=== PATIENT | female | born 1975 | race Caucasian/White ===

== ENCOUNTER 2019-05-07 16:29 | Inpatient (IN) ==
[2019-05-07] MEDS ORDERED: Acetaminophen 325 MG TABLET PO ONE (16:53)
[2019-05-07] MEDS ORDERED: 0.9 % Sodium Chloride 1,000 ML IVC ONE (17:18)
[2019-05-07] MEDS ORDERED: Ondansetron 4 MG/2 ML VIAL IVP ONE (17:18)
[2019-05-07 17:24] LABS: Bilirubin,Urine Small (Negative); Blood,Urine Moderate (Negative); Clarity,Urine Cloudy (Clear); Color,Urine Dark Yellow (Yellow); Glucose,Urine (UA) 100 mg/dL (Normal); Ketones,Urine Negative (Negative); Leukocyte Esterase,Urine Negative (Negative); Nitrite,Urine Negative (Negative); Protein,Urine 100 mg/dL (Neg-Trace); Specific Gravity,Urine 1.024 (1.010-1.025); Urobilinogen,Urine Normal (Normal)
[2019-05-07 17:26] LABS: Bacteria,Urine Few per hpf (None-Few); Squamous Epithelial Cell,Urine Many per lpf (None-Few); WBC,Urine 15-30 per hpf (0-3)
[2019-05-07] MEDS ORDERED: Gadolinium Contrast Agent (WT Based) IV PRN ×3 (17:30→17:32)
[2019-05-07] MEDS ORDERED: Isovue-370 500 ML BOTTLE IVP ONE (18:08)
[2019-05-07 18:25] LABS: Basophils % 0.2 %; Eosinophils % 0.2 %; Hematocrit 37.5 % (35.3-44.9); Hemoglobin 12.4 g/dL (11.5-15.4); Immature Granulocytes % 0.5 % (0-4); Lymphocytes # 0.3 K/mcL (0.6-4.6); Lymphocytes % 5.5 %; Mean Corpuscular HGB Conc 33.1 g/dL (31.6-35.5); Mean Corpuscular Hemoglobin 28.9 pg (28.0-33.3); Mean Corpuscular Volume 87.4 fL (83.0-100.0); Mean Platelet Volume 10.1 fL (9.4-12.4); Monocytes # 0.4 K/mcL (0.0-1.3); Neutrophils # 5.1 K/mcL (1.6-8.9); Platelet Count 131 K/mcL (140-400); Red Blood Count 4.29 M/mcL (3.82-4.97); Red Cell Distribution Width 12.8 % (11.5-14.5); Segmented Neutrophils % 87.6 %; White Blood Count 5.8 K/mcL (4.3-11.1)
[2019-05-07 18:38] LABS: INR 1.1; Prothrombin Time 12.2 Seconds (9.4-12.1)
[2019-05-07 18:45] LABS: Alanine Aminotransferase 27 Units/L (7-52); Albumin 3.7 g/dL (3.5-5.7); Albumin/Globulin Ratio 1.4 (1.1-2.2); Alkaline Phosphatase 90 Units/L (34-104); Aspartate Amino Transferase 40 Units/L (13-39); BUN/Creatinine Ratio 24 (6-26); Bilirubin,Direct 0.1 mg/dL (0.0-0.2); Bilirubin,Indirect 0.4 mg/dL (0.0-1.2); Bilirubin,Total 0.5 mg/dL (0.3-1.0); Blood Urea Nitrogen 20 mg/dL (6-20); Calcium 8.3 mg/dL (8.6-10.3); Carbon Dioxide 25 mEq/L (23-29); Chloride 94 mEq/L (98-107); Globulin 2.7 g/dL (2.4-3.5); Glucose 123 mg/dL (70-105); Magnesium 1.8 mg/dL (1.6-2.6); Osmolality,Calculated 272 (280-300); Phosphorous 1.8 mg/dL (2.7-4.5); Potassium 2.7 mEq/L (3.5-5.1); Sodium 129 mEq/L (136-145); Total Protein 6.4 g/dL (6.4-8.9); Troponin I < 0.03 ng/mL (< 0.04); eGFR For African Americans > 60 (> 60); eGFR For Non-African Americans > 60 (> 60)
[2019-05-07 18:52] LABS: Activated Partial Thrombo Time 35.8 Seconds (26.0-36.0)
[2019-05-07 19:03] LABS: Platelet Estimate Slight Decrease (Normal)
[2019-05-07] MEDS ORDERED: Potassium Chloride 40 MEQ, Lidocaine 1% 2 ML in 0.9 % Sodium Chloride 500 ML IVPB ONE (19:07)
[2019-05-07] MEDS ORDERED: Piperacillin/Tazobactam 3.375 GM in Water for inj. (sterile) 20 ML IVP ONE (20:17)
[2019-05-07] MEDS ORDERED: Naloxone 0.4 MG/ML INJ IVP PRN (22:37)
[2019-05-07] MEDS ORDERED: Ondansetron 4 MG/2 ML VIAL IVP PRN (22:37)
[2019-05-07] MEDS ORDERED: 0.9 % Sodium Chloride 1,000 ML IVC SCH (22:45)
[2019-05-07] MEDS: *HR* OxyCODONE/APAP 5/325 TABLET PO PRN (23:23)
[2019-05-07] MEDS: Acetaminophen 325 MG TABLET PO SCH (23:23)
[2019-05-07] MEDS ORDERED: *HR* LORazepam 2 MG/ML VIAL IVP PRN (23:27)
[2019-05-08] MEDS ORDERED: Ampicillin 2 GM in 0.9 % Sodium Chloride Mini Bag 100 ML IVPB SCH
[2019-05-08] MEDS: Acyclovir 600 MG in D5% in Water 250 ML IVPB SCH ×2 (00:23→08:58)
[2019-05-08] MEDS: 0.9 % Sodium Chloride 1,000 ML IVC SCH ×2 (00:24→12:30)
[2019-05-08 00:31] LABS: VBG Ionized Calcium 1.09 mmol/L (1.15-1.35)
[2019-05-08 00:33] LABS: Basophils % 0.2 %; Eosinophils % 0.8 %; Hematocrit 33.1 % (35.3-44.9); Hemoglobin 11.1 g/dL (11.5-15.4); Immature Granulocytes % 0.8 % (0-4); Lymphocytes # 0.4 K/mcL (0.6-4.6); Lymphocytes % 8.2 %; Mean Corpuscular HGB Conc 33.5 g/dL (31.6-35.5); Mean Corpuscular Hemoglobin 28.8 pg (28.0-33.3); Mean Platelet Volume 9.9 fL (9.4-12.4); Monocytes # 0.4 K/mcL (0.0-1.3); Platelet Count 113 K/mcL (140-400); Red Blood Count 3.85 M/mcL (3.82-4.97); Red Cell Distribution Width 12.9 % (11.5-14.5); White Blood Count 5.3 K/mcL (4.3-11.1)
[2019-05-08 00:41] LABS: Chol/HDL Ratio 3.2 (0-4.9)
[2019-05-08 00:42] LABS: BUN/Creatinine Ratio 20 (6-26); Blood Urea Nitrogen 13 mg/dL (6-20); Calcium 7.7 mg/dL (8.6-10.3); Carbon Dioxide 23 mEq/L (23-29); Chloride 102 mEq/L (98-107); Glucose 121 mg/dL (70-105); Magnesium 1.6 mg/dL (1.6-2.6); Osmolality,Calculated 275 (280-300); Potassium 2.9 mEq/L (3.5-5.1); Sodium 132 mEq/L (136-145); eGFR For African Americans > 60 (> 60); eGFR For Non-African Americans > 60 (> 60)
[2019-05-08 00:43] LABS: Neutrophils # 4.4 K/mcL (1.6-8.9)
[2019-05-08] MEDS ORDERED: Gadolinium Contrast Agent (WT Based) IV PRN (01:34)
[2019-05-08] MEDS ORDERED: Potassium Phosphate 44 MEQ in 0.9 % Sodium Chloride 250 ML IVPB ONE (01:42)
[2019-05-08] MEDS ORDERED: cefTRIAXone 2,000 MG in Water for inj. (sterile) 20 ML IVP SCH (02:00)
[2019-05-08 02:23] LABS: Amphetamine Screen,Urine Positive ng/mL (Cutoff=1000); Barbiturate Screen,Urine Negative ng/mL (Cutoff=200); Benzodiazepines Screen,Urine Negative ng/mL (Cutoff=200); Cannabinoid Screen,Urine Positive ng/mL (Cutoff = 50); Cocaine Screen,Urine Negative ng/mL (Cutoff= 300); Opiate Screen,Urine Negative ng/mL (Cutoff=300); Phencyclidine Screen,Urine Negative ng/mL (Cutoff=25)
[2019-05-08] MEDS: Ipratropium/Albuterol Neb 3 ML IH SCH ×4 (03:51→22:18)
[2019-05-08] MEDS: Acetaminophen 325 MG TABLET PO SCH ×4 (05:14→23:04)
[2019-05-08] MEDS: *HR* OxyCODONE/APAP 5/325 TABLET PO PRN ×3 (05:15→23:04)
[2019-05-08] MEDS ORDERED: Piperacillin/Tazobactam 3.375 GM in 0.9 % Sodium Chloride Mini Bag 100 ML IVPB SCH (06:00)
[2019-05-08] MEDS ORDERED: *HR* Heparin 5,000 UNIT/ML VIAL SQ SCH (06:00)
[2019-05-08] MEDS: Nystatin SUSP 5 ML UD.LIQ PO SCH ×4 (06:23→20:00)
[2019-05-08 08:30] LABS: Phosphorous 3.5 mg/dL (2.7-4.5); Potassium 3.5 mEq/L (3.5-5.1)
[2019-05-08] MEDS ORDERED: Aminoglycoside Consult 1 EACH MC ONE (08:34)
[2019-05-08] MEDS: FLUoxetine 20 MG CAPSULE PO SCH (09:10)
[2019-05-08] MEDS: Topiramate 100 MG TABLET PO SCH ×2 (09:10→20:00)
[2019-05-08 12:58] LABS: Acinetobacter baumannii by PCR Not Detected (Not Detect); Candida albicans by PCR Not Detected (Not Detect); Candida glabrata by PCR Not Detected (Not Detect); Candida krusei by PCR Not Detected (Not Detect); Candida parapsilosis by PCR Not Detected (Not Detect); Candida tropicalis by PCR Not Detected (Not Detect); Enterobacter cloacae Cmplx PCR Not Detected (Not Detect); Enterobacteriaceae by PCR Not Detected (Not Detect); Enterococcus by PCR Not Detected (Not Detect); Escherichia coli by PCR Not Detected (Not Detect); Klebsiella oxytoca by PCR Not Detected (Not Detect); Klebsiella pneumoniae by PCR Not Detected (Not Detect); Proteus by PCR Not Detected (Not Detect); Pseudomonas aeruginosa by PCR Not Detected (Not Detect); Serratia marcescens by PCR Not Detected (Not Detect); Staphylococcus aureus by PCR DETECTED (Not Detect); Streptococcus agalactiae(B)PCR Not Detected (Not Detect); Streptococcus by PCR Not Detected (Not Detect); Streptococcus pneumoniae PCR Not Detected (Not Detect); Streptococcus pyogenes (A) PCR Not Detected (Not Detect); mecA Methicillin-Resist Gene Not Detected (Not Detect)
[2019-05-08] MEDS ORDERED: Haloperidol Lactate 5 MG/ML VIAL IVP ONE (14:00)
[2019-05-08] MEDS ORDERED: Nicotine 2 MG GUM BC PRN (17:58)
[2019-05-08 18:37] LABS: Hepatitis B Surface Antigen Nonreactive (Nonreactive)
[2019-05-08 19:06] LABS: Hepatitis B Core IgM Nonreactive (Nonreactive); Hepatitis C Virus Antibody Nonreactive (Nonreactive)
[2019-05-08 19:07] LABS: HIV-1&2 Antibody & p24 Ag Nonreactive (Nonreactive)
[2019-05-08] MEDS: Sennosides/Docusate Sodium TABLET PO SCH (23:04)
[2019-05-09] MEDS: Ipratropium/Albuterol Neb 3 ML IH SCH ×4 (04:11→22:45)
[2019-05-09] MEDS: *HR* OxyCODONE/APAP 5/325 TABLET PO PRN ×2 (05:11→20:06)
[2019-05-09] MEDS: Acetaminophen 325 MG TABLET PO SCH ×3 (05:11→17:05)
[2019-05-09 07:58] LABS: Basophils % 0.3 %; Eosinophils # 0.2 K/mcL (0.0-0.6); Eosinophils % 2.4 %; Hematocrit 30.7 % (35.3-44.9); Hemoglobin 10.1 g/dL (11.5-15.4); Immature Granulocytes % 0.8 % (0-4); Lymphocytes # 1.2 K/mcL (0.6-4.6); Lymphocytes % 17.1 %; Mean Corpuscular HGB Conc 32.9 g/dL (31.6-35.5); Mean Corpuscular Hemoglobin 28.9 pg (28.0-33.3); Mean Corpuscular Volume 87.7 fL (83.0-100.0); Mean Platelet Volume 10.3 fL (9.4-12.4); Monocytes # 0.7 K/mcL (0.0-1.3); Monocytes % 9.6 %; Platelet Count 138 K/mcL (140-400); Red Cell Distribution Width 13.6 % (11.5-14.5); Segmented Neutrophils % 69.8 %; White Blood Count 7.1 K/mcL (4.3-11.1)
[2019-05-09] MEDS: Nystatin SUSP 5 ML UD.LIQ PO SCH ×4 (08:15→19:54)
[2019-05-09 08:20] LABS: BUN/Creatinine Ratio 18 (6-26); Blood Urea Nitrogen 11 mg/dL (6-20); Calcium 8.3 mg/dL (8.6-10.3); Carbon Dioxide 22 mEq/L (23-29); Chloride 106 mEq/L (98-107); Glucose 103 mg/dL (70-105); Magnesium 1.9 mg/dL (1.6-2.6); Osmolality,Calculated 286 (280-300); Phosphorous 3.5 mg/dL (2.7-4.5); Potassium 3.5 mEq/L (3.5-5.1); Sodium 138 mEq/L (136-145); eGFR For African Americans > 60 (> 60); eGFR For Non-African Americans > 60 (> 60)
[2019-05-09] MEDS ORDERED: *HR* Midazolam HCl 2 MG/2 ML VIAL IVP PRN (08:49)
[2019-05-09] MEDS ORDERED: Lidocaine Viscous Oral Soln 15 ML SOLUTION MM PRN (08:49)
[2019-05-09] MEDS ORDERED: *HR* FentaNYL (PF) 100 MCG/2 ML VIAL IVP PRN (08:49)
[2019-05-09] MEDS ORDERED: 0.9 % Sodium Chloride 500 ML IVC ONE (08:49)
[2019-05-09] MEDS ORDERED: *HR* Midazolam HCl 5 MG/5 ML VIAL IVP ONE (09:09)
[2019-05-09] MEDS: *HR* Heparin 5,000 UNIT/ML VIAL SQ SCH ×2 (10:20→17:06)
[2019-05-09] MEDS: Topiramate 100 MG TABLET PO SCH ×2 (11:09→19:54)
[2019-05-09] MEDS: Sennosides/Docusate Sodium TABLET PO SCH ×2 (11:09→19:54)
[2019-05-09] MEDS: FLUoxetine 20 MG CAPSULE PO SCH (11:09)
[2019-05-09] MEDS ORDERED: Ringers Solution, Lactated 1,000 ML IVC SCH (12:00)
[2019-05-09] MEDS: Divalproex (24 HR) 500 MG TABLET PO SCH (19:54)
[2019-05-09] MEDS: QUEtiapine Fumarate 25 MG TABLET PO SCH (19:54)
[2019-05-09 21:07] LABS: mecA Methicillin-Resist Gene Not Detected (Not Detect)
[2019-05-09 21:08] LABS: Acinetobacter baumannii by PCR Not Detected (Not Detect); Candida albicans by PCR Not Detected (Not Detect); Candida glabrata by PCR Not Detected (Not Detect); Candida krusei by PCR Not Detected (Not Detect); Candida parapsilosis by PCR Not Detected (Not Detect); Candida tropicalis by PCR Not Detected (Not Detect); Enterobacter cloacae Cmplx PCR Not Detected (Not Detect); Enterobacteriaceae by PCR Not Detected (Not Detect); Enterococcus by PCR Not Detected (Not Detect); Escherichia coli by PCR Not Detected (Not Detect); Klebsiella oxytoca by PCR Not Detected (Not Detect); Klebsiella pneumoniae by PCR Not Detected (Not Detect); Proteus by PCR Not Detected (Not Detect); Pseudomonas aeruginosa by PCR Not Detected (Not Detect); Serratia marcescens by PCR Not Detected (Not Detect); Staphylococcus aureus by PCR DETECTED (Not Detect); Staphylococcus by PCR Not Detected (Not Detect); Streptococcus agalactiae(B)PCR Not Detected (Not Detect); Streptococcus by PCR Not Detected (Not Detect); Streptococcus pneumoniae PCR Not Detected (Not Detect); Streptococcus pyogenes (A) PCR Not Detected (Not Detect)
[2019-05-10] MEDS: Acetaminophen 325 MG TABLET PO SCH ×4 (01:41→11:42)
[2019-05-10 02:25] LABS: Basophils % 0.2 %; Eosinophils # 0.2 K/mcL (0.0-0.6); Eosinophils % 2.7 %; Hematocrit 32.2 % (35.3-44.9); Hemoglobin 10.4 g/dL (11.5-15.4); Immature Granulocytes % 0.6 % (0-4); Lymphocytes # 1.5 K/mcL (0.6-4.6); Lymphocytes % 18.6 %; Mean Corpuscular HGB Conc 32.3 g/dL (31.6-35.5); Mean Corpuscular Hemoglobin 29.2 pg (28.0-33.3); Mean Corpuscular Volume 90.4 fL (83.0-100.0); Monocytes # 0.7 K/mcL (0.0-1.3); Monocytes % 8.1 %; Neutrophils # 5.6 K/mcL (1.6-8.9); Platelet Count 168 K/mcL (140-400); Red Blood Count 3.56 M/mcL (3.82-4.97); Red Cell Distribution Width 13.7 % (11.5-14.5); Segmented Neutrophils % 69.8 %; White Blood Count 8.1 K/mcL (4.3-11.1)
[2019-05-10 02:46] LABS: BUN/Creatinine Ratio 20 (6-26); Blood Urea Nitrogen 11 mg/dL (6-20); Calcium 8.5 mg/dL (8.6-10.3); Carbon Dioxide 21 mEq/L (23-29); Chloride 108 mEq/L (98-107); Glucose 92 mg/dL (70-105); Magnesium 2.1 mg/dL (1.6-2.6); Osmolality,Calculated 283 (280-300); Phosphorous 3.9 mg/dL (2.7-4.5); Potassium 4.1 mEq/L (3.5-5.1); Sodium 137 mEq/L (136-145); eGFR For African Americans > 60 (> 60); eGFR For Non-African Americans > 60 (> 60)
[2019-05-10] MEDS: Ipratropium/Albuterol Neb 3 ML IH SCH ×4 (04:04→22:27)
[2019-05-10] MEDS: *HR* Heparin 5,000 UNIT/ML VIAL SQ SCH ×2 (06:40→17:12)
[2019-05-10] MEDS: *HR* OxyCODONE/APAP 5/325 TABLET PO PRN ×3 (06:47→20:24)
[2019-05-10] MEDS: Nystatin SUSP 5 ML UD.LIQ PO SCH ×4 (08:13→20:24)
[2019-05-10] MEDS: Sennosides/Docusate Sodium TABLET PO SCH ×2 (08:13→20:24)
[2019-05-10] MEDS: FLUoxetine 20 MG CAPSULE PO SCH (08:13)
[2019-05-10] MEDS: Topiramate 100 MG TABLET PO SCH ×2 (08:13→20:24)
[2019-05-10] MEDS ORDERED: Acetaminophen 325 MG TABLET PO PRN (17:21)
[2019-05-10] MEDS: Divalproex (24 HR) 500 MG TABLET PO SCH (20:24)
[2019-05-10] MEDS: QUEtiapine Fumarate 25 MG TABLET PO SCH (20:24)
[2019-05-11] MEDS: Ipratropium/Albuterol Neb 3 ML IH SCH (04:00)
[2019-05-11] MEDS ORDERED: Ipratropium/Albuterol Neb 3 ML IH PRN (05:14)
[2019-05-11] MEDS: *HR* Heparin 5,000 UNIT/ML VIAL SQ SCH ×2 (06:07→17:37)
[2019-05-11] MEDS: Nystatin SUSP 5 ML UD.LIQ PO SCH ×4 (08:09→20:26)
[2019-05-11] MEDS: FLUoxetine 20 MG CAPSULE PO SCH (08:10)
[2019-05-11] MEDS: Topiramate 100 MG TABLET PO SCH ×2 (08:10→20:28)
[2019-05-11] MEDS: Sennosides/Docusate Sodium TABLET PO SCH ×2 (08:10→20:28)
[2019-05-11] MEDS ORDERED: Nicotine 21 MG PATCH.TD24 TD STA (18:16)
[2019-05-11] MEDS: QUEtiapine Fumarate 25 MG TABLET PO SCH (20:28)
[2019-05-11] MEDS: *HR* OxyCODONE/APAP 5/325 TABLET PO PRN (20:28)
[2019-05-11] MEDS: Divalproex (24 HR) 500 MG TABLET PO SCH (20:28)
[2019-05-12 02:46] LABS: BUN/Creatinine Ratio 25 (6-26); Blood Urea Nitrogen 14 mg/dL (6-20); Carbon Dioxide 19 mEq/L (23-29); Chloride 106 mEq/L (98-107); Glucose 99 mg/dL (70-105); Magnesium 2.4 mg/dL (1.6-2.6); Osmolality,Calculated 281 (280-300); Phosphorous 4.1 mg/dL (2.7-4.5); Sodium 135 mEq/L (136-145); eGFR For African Americans > 60 (> 60); eGFR For Non-African Americans > 60 (> 60)
[2019-05-12 04:13] LABS: Basophils # 0.1 K/mcL (0.0-0.2); Basophils % 0.9 %; Eosinophils # 0.3 K/mcL (0.0-0.6); Eosinophils % 3.9 %; Hematocrit 36.4 % (35.3-44.9); Hemoglobin 11.7 g/dL (11.5-15.4); Immature Granulocytes % 4.5 % (0-4); Lymphocytes % 30.4 %; Mean Corpuscular HGB Conc 32.1 g/dL (31.6-35.5); Mean Corpuscular Hemoglobin 28.5 pg (28.0-33.3); Mean Corpuscular Volume 88.6 fL (83.0-100.0); Mean Platelet Volume 10.2 fL (9.4-12.4); Monocytes # 0.5 K/mcL (0.0-1.3); Monocytes % 8.2 %; Neutrophils # 3.4 K/mcL (1.6-8.9); Platelet Count 333 K/mcL (140-400); Red Blood Count 4.11 M/mcL (3.82-4.97); Red Cell Distribution Width 13.8 % (11.5-14.5); Segmented Neutrophils % 52.1 %; White Blood Count 6.6 K/mcL (4.3-11.1)
[2019-05-12] MEDS: *HR* Heparin 5,000 UNIT/ML VIAL SQ SCH ×2 (05:08→17:10)
[2019-05-12] MEDS: Sennosides/Docusate Sodium TABLET PO SCH ×2 (08:02→21:11)
[2019-05-12] MEDS: Topiramate 100 MG TABLET PO SCH ×2 (08:04→21:11)
[2019-05-12] MEDS: FLUoxetine 20 MG CAPSULE PO SCH (08:05)
[2019-05-12] MEDS: Nystatin SUSP 5 ML UD.LIQ PO SCH ×5 (08:05→21:16)
[2019-05-12] MEDS: *HR* OxyCODONE/APAP 5/325 TABLET PO PRN ×2 (10:48→19:32)
[2019-05-12] MEDS: Divalproex (24 HR) 500 MG TABLET PO SCH (21:11)
[2019-05-12] MEDS: QUEtiapine Fumarate 25 MG TABLET PO SCH (21:12)
[2019-05-13] MEDS: *HR* Heparin 5,000 UNIT/ML VIAL SQ SCH ×2 (04:58→18:43)
[2019-05-13] MEDS: *HR* OxyCODONE/APAP 5/325 TABLET PO PRN ×3 (05:04→19:35)
[2019-05-13] MEDS: FLUoxetine 20 MG CAPSULE PO SCH (08:32)
[2019-05-13] MEDS: Sennosides/Docusate Sodium TABLET PO SCH ×2 (08:32→19:33)
[2019-05-13] MEDS: Topiramate 100 MG TABLET PO SCH ×2 (08:32→19:36)
[2019-05-13] MEDS: Nystatin SUSP 5 ML UD.LIQ PO SCH ×4 (08:33→19:34)
[2019-05-13] MEDS: QUEtiapine Fumarate 25 MG TABLET PO SCH (19:36)
[2019-05-13] MEDS ORDERED: Divalproex (24 HR) 500 MG TABLET PO SCH (21:00)
[2019-05-14] MEDS: *HR* OxyCODONE/APAP 5/325 TABLET PO PRN ×2 (04:10→14:39)
[2019-05-14] MEDS: *HR* Heparin 5,000 UNIT/ML VIAL SQ SCH ×2 (04:11→18:26)
[2019-05-14] MEDS: Sennosides/Docusate Sodium TABLET PO SCH (08:46)
[2019-05-14] MEDS: Topiramate 100 MG TABLET PO SCH (08:46)
[2019-05-14] MEDS: Nystatin SUSP 5 ML UD.LIQ PO SCH ×4 (08:46→17:13)
[2019-05-14] MEDS: FLUoxetine 20 MG CAPSULE PO SCH (08:46)
[2019-05-14 14:55] VITALS: BP 94/63
== END 2019-05-14 19:51 | DRG 720 ==
LOC: EMEROOARM 16:29 → 2ANU 16:29 → 2NNU 21:11 → SUATTDRO 05-08 03:39 → 3ANU 05-12 18:06
PROVIDERS: ADMIT Pediatrics; ATTEND Pharmacist

== ENCOUNTER 2022-02-16 13:17 | Observation (INO) ==
[2022-02-16 14:06] LABS: Basophils % 0.5 %; Eosinophils # 0.1 K/mcL (0.0-0.6); Eosinophils % 1.6 %; Hematocrit 41.3 % (35.3-44.9); Hemoglobin 13.5 g/dL (11.5-15.4); Immature Granulocytes % 0.6 % (0-4); Lymphocytes # 2.7 K/mcL (0.6-4.6); Lymphocytes % 41.4 %; Mean Corpuscular HGB Conc 32.7 g/dL (31.6-35.5); Mean Corpuscular Hemoglobin 29.4 pg (28.0-33.3); Monocytes # 0.7 K/mcL (0.0-1.3); Monocytes % 10.9 %; Neutrophils # 2.9 K/mcL (1.6-8.9); Platelet Count 169 K/mcL (140-400); Red Blood Count 4.59 M/mcL (3.82-4.97); Red Cell Distribution Width 13.6 % (11.5-14.5); White Blood Count 6.4 K/mcL (4.3-11.1)
[2022-02-16 14:26] LABS: Alanine Aminotransferase 10 Units/L (7-52); Albumin 4.2 g/dL (3.5-5.7); Albumin/Globulin Ratio 1.9 (1.1-2.2); Alkaline Phosphatase 59 Units/L (34-104); Aspartate Amino Transferase 11 Units/L (13-39); BUN/Creatinine Ratio 26 (6-26); Bilirubin,Total 0.3 mg/dL (0.3-1.0); Blood Urea Nitrogen 26 mg/dL (6-20); Calcium 9.5 mg/dL (8.6-10.3); Carbon Dioxide 26 mEq/L (23-29); Chloride 109 mEq/L (98-107); Globulin 2.2 g/dL (2.4-3.5); Glucose 88 mg/dL (70-105); Osmolality,Calculated 296 (280-300); Potassium 4.3 mEq/L (3.5-5.1); Sodium 141 mEq/L (136-145); Total Protein 6.4 g/dL (6.4-8.9); Troponin I < 0.03 ng/mL (< 0.04); eGFR For African Americans > 60 (> 60); eGFR For Non-African Americans > 60 (> 60)
[2022-02-16 14:54] LABS: Influenza A PCR Negative (Negative); Influenza B PCR Negative (Negative); Resp. Syncytial Virus PCR Negative (Negative)
[2022-02-16 15:11] LABS: SARS-CoV-2 by PCR (In House) Negative (Negative)
[2022-02-16] MEDS ORDERED: Aspirin 325 MG TABLET PO ONE (15:58)
[2022-02-16] MEDS ORDERED: Ondansetron 4 MG/2 ML VIAL IVP PRN (16:44)
[2022-02-16] MEDS ORDERED: Naloxone 0.4 MG/ML INJ IVP PRN (16:44)
[2022-02-16] MEDS ORDERED: Perflutren Lipid Microsphere 1.3 ML in 0.9 % Sodium Chloride 8.7 ML IVP PRN (16:50)
[2022-02-16] MEDS: Acetaminophen 325 MG TABLET PO PRN ×2 (17:55→23:56)
[2022-02-17 03:36] LABS: Basophils # 0.1 K/mcL (0.0-0.2); Eosinophils # 0.1 K/mcL (0.0-0.6); Eosinophils % 1.8 %; Hematocrit 39.1 % (35.3-44.9); Hemoglobin 12.4 g/dL (11.5-15.4); Immature Granulocytes % 0.6 % (0-4); Lymphocytes # 2.5 K/mcL (0.6-4.6); Lymphocytes % 49.5 %; Mean Corpuscular HGB Conc 31.7 g/dL (31.6-35.5); Mean Corpuscular Hemoglobin 28.8 pg (28.0-33.3); Mean Corpuscular Volume 90.9 fL (83.0-100.0); Mean Platelet Volume 9.2 fL (9.4-12.4); Monocytes # 0.6 K/mcL (0.0-1.3); Monocytes % 10.9 %; Neutrophils # 1.9 K/mcL (1.6-8.9); Platelet Count 159 K/mcL (140-400); Red Cell Distribution Width 13.8 % (11.5-14.5); Segmented Neutrophils % 36.2 %; White Blood Count 5.1 K/mcL (4.3-11.1)
[2022-02-17 03:53] LABS: BUN/Creatinine Ratio 32 (6-26); Blood Urea Nitrogen 29 mg/dL (6-20); Calcium 9.2 mg/dL (8.6-10.3); Carbon Dioxide 26 mEq/L (23-29); Chloride 109 mEq/L (98-107); Glucose 100 mg/dL (70-105); Magnesium 2.1 mg/dL (1.6-2.6); Osmolality,Calculated 300 (280-300); Potassium 3.9 mEq/L (3.5-5.1); Sodium 142 mEq/L (136-145); eGFR For African Americans > 60 (> 60); eGFR For Non-African Americans > 60 (> 60)
[2022-02-17] MEDS: *HR* Enoxaparin 40 MG/0.4 ML SYRINGE SQ SCH ×2 (05:55→06:00)
[2022-02-17 06:42] VITALS: O2SAT 96
[2022-02-17] MEDS ORDERED: Regadenoson 0.4 MG/5 ML SYRINGE IVP ONE (06:54)
[2022-02-17] MEDS ORDERED: D5% in Water 1,000 ML IVC PRN (07:10)
[2022-02-17] MEDS ORDERED: Dextrose Gel 15 GM/37.5 ML TUBE PO PRN ×2 (07:10)
[2022-02-17] MEDS ORDERED: *HR* Dextrose 50 % in Water (Syg) 50 ML SYRINGE IVP PRN (07:10)
[2022-02-17] MEDS: Insulin LISPRO 300 UNITS/3 ML VIAL SUBQ SCH ×2 (08:07→11:41)
[2022-02-17] MEDS ORDERED: Aspirin Enteric Coated 81 MG Tablet PO SCH (09:00)
[2022-02-17] MEDS ORDERED: Carbamide Peroxide 150 DROP/15 ML BOTTLE LEFT EAR SCH (09:00)
[2022-02-17] MEDS ORDERED: hydrOXYzine pamoate 25 MG CAPSULE PO SCH ×2 (09:00)
[2022-02-17] MEDS ORDERED: Cyprohepatdine 4 MG TABLET PO SCH (09:00)
[2022-02-17] MEDS ORDERED: Divalproex (24 HR) 500 MG TABLET PO SCH (09:00)
[2022-02-17 15:00] VITALS: BP 106/61; PULSE 82; TEMP 98
[2022-02-17] MEDS ORDERED: Insulin LISPRO 300 UNITS/3 ML VIAL SUBQ SCH (21:00)
== END 2022-02-17 18:07 | disposition other institution (70) ==
LOC: 3BNU 13:17 → EMEROOARM 13:17 → SUATTDRO 16:54 → 3BNU 17:37
PROVIDERS: ADMIT Pharmacist; ATTEND Internal Medicine